=== PATIENT | male | born 1955 | race Caucasian/White ===

== ENCOUNTER → 2024-11-17 13:01 | Outpatient (REF) | payer MEDICARE, SELFPAY | LOC: HWRAD 13:01 | PROVIDERS: ATTENDING PHYSICIAN Nurse Practitioner | DX: M54.42 Lumbago with sciatica, left side (principal) | CPT/HCPCS: 72110 ==

== ENCOUNTER 2024-12-30 01:30 | Inpatient (IN) | payer MEDICARE, SELFPAY ==
[2024-12-29 21:45] VITALS: BP 165/81
[2024-12-29 22:17] LABS: Hemoglobin 11.3 g/dL (13.0-18.0); Mean Corp Hgb Conc. 33.2 g/dL (33.0-37.0); Mean Corpuscular Hgb 27.7 pg (27.0-31.0); Mean Corpuscular Volume 83.3 fL (80.0-94.0); Mean Platelet Volume 11.9 fL (7.4-10.4); Platelet Count 227 10^3/uL (130-400); Red Blood Cell Count 4.08 10^6/uL (4.70-6.10); Red Cell Dist. Width 17.3 % (11.5-14.5); White Blood Cell Count 12.6 10^3/uL (4.8-10.8)
[2024-12-29 22:25] LABS: ALT (SGPT) 18 U/L (0-50); AST (SGOT) 26 U/L (17-59); Albumin 4.4 g/dl (3.5-5.0); Alkaline Phosphatase 249 U/L (38-126); Blood Urea Nitrogen 12 mg/dl (9-20); Calcium 9.4 mg/dl (8.4-10.2); Carbon Dioxide 25 mmol/L (22-30); Chloride 106 mmol/L (98-107); Glucose 156 mg/dl (70-99); Potassium 4.2 mmol/L (3.5-5.1); Sodium 141 mmol/L (135-145); Total Bilirubin 0.8 mg/dl (0.2-1.3); Total Protein 7.1 g/dl (6.3-8.2); eGFR > 60.00
[2024-12-29 22:28] LABS: Absolute Neutrophils -Man Diff 7.8 10^3/uL (1.4-6.5); Band Neutrophils 0 % (0-3); Eosinophils 13 % (0-6); Lymphocytes 10 % (20-51); Monocytes 15 % (2-9); Normal RBC Morphology No; Platelets Checked Yes; Segmented Neutrophils 62 % (42-75)
[2024-12-29 22:29] LABS: Anisocytosis 1+
[2024-12-29 22:30] LABS: Ovalocytes 1+
[2024-12-29 22:31] LABS: Microcytosis 1+; Target Cells Slight; Total Cells Counted 100
--- NOTE | 2024-12-29 23:26 | ED.CVA ---
History of Present Illness
General
Chief Complaint: CVA/TIA Symptoms
Source: patient
Exam Limitations: none
Time Seen by Provider: 12/29/24 23:13
Onset of Stroke Symptoms
Onset of symptoms known: Yes
Date of onset of symptoms: 12/29/24
History of Present Illness
History of Present Illness:
See MDM
Past History
Past History
ED Past Medical History: Cancer (Pancreatic )
ED Past Surgical History: Other (Port)
Social History
Tobacco: Non-smoker
Alcohol: None
Phy Exam
Physical Exam
Physical Exam:
See MDM
Scores
NIH Stroke Score
Level of Consciousness: 0 - Alert
LOC Questions: 0-Answers both correctly
LOC Commands: 0-Performs both correctly
Best Horizontal Gaze: 0-Normal
Visual Barboza: 0=Normal, no visual loss
Facial Palsy: 1=Minor paralysis
Motor - Right Arm: 0=No drift 10 seconds
Motor - Left Arm: 0=No drift 10 seconds
Motor - Right Le-No drift 5 seconds
Motor - Left Le-No drift 5 seconds
Limb Ataxia: 0-Absent
Sensation: 0-Normal
Best Language: 0-No aphasia
Dysarthria: 1-Mild slurring
Extinction and Inattention: 0-No abnormality
NIH Total Score:: 2
Course
Orders/Labs/Results
Orders:
Orders
12/29/24 21:[address] [CT Head W/o Iv Contrast] Urgent
Comment:
Reason For Exam: slurred speech
12/29/24 21:56
Complete Blood Count/With Diff Urgent
Comprehensive Metabolic Panel Urgent
Manual Differential Urgent
12/29/24 23:31
Electrocardiogram (*1) Urgent
Reason for Study: TIA/Stroke
EKG- Treatment ONCE
Abnormal Lab Results
12/29/24
21:56
WBC 12.6 H 10^3/uL
(4.8-10.8)
RBC 4.08 L 10^6/uL
(4.70-6.10)
Hgb 11.3 L g/dL
(13.0-18.0)
Hct 34.0 L %
(39.0-52.0)
RDW 17.3 H %
(11.5-14.5)
MPV 11.9 H fL
(7.4-10.4)
Abs Neuts (Manual) 7.8 H 10^3/uL
(1.4-6.5)
Lymphocytes (Manual) 10 L %
(20-51)
Monocytes (Manual) 15 H %
(2-9)
Eosinophils (Manual) 13 H %
(0-6)
Glucose 156 H mg/dl
(70-99)
Alkaline Phosphatase 249 H U/L
(38-126)
12/29/24 21:56
12/29/24 21:56
Vital Signs
Initial and Last Documented VS:
Initial Vital Signs
Temp Pulse Resp BP Pulse Ox
98.9 F 87 16 165/81 95
12/29/24 21:45 12/29/24 21:45 12/29/24 21:45 12/29/24 21:45 12/29/24 21:45
Last Documented Vital Signs
Temp Pulse Resp BP Pulse Ox
98.9 F 73 16 150/61 95
12/29/24 21:45 12/29/24 23:38 12/29/24 21:45 12/29/24 23:38 12/29/24 21:45
MDM/Problems Addressed
Differential Diagnosis Includes:
HPI and MDM Narrative:
69-year-old male presenting for evaluation of slurred speech and left facial droop. This occurred around 3 PM this afternoon. By time he got to the emergency department, patient was not a TNK candidate. Regardless, he has active pancreatic cancer
receiving experimental treatment. He denies any headache. Denies numbness or tingling. On exam, patient does have mild dysarthria and evidence of very mild left facial droop. The remainder of his neuro exam within normal limits. Patient already
took his Eliquis earlier in the evening. CT head negative. Will admit for further stroke workup
Physical exam
General: Well appearing and non-toxic
HEENT: protecting airway
Neck: appears supple
CV: No evidence of cyanosis. Regular rate and rhythm
Resp: No accessory muscle use
Abd: Non-distended
Extremities: No deformities
Neuro: alert. Mild dysarthria. Very mild left facial droop
Psych: Normal affect
Skin: Intact
Problems Addressed including Acute and Chronic Conditions affecting care:
1. Dysarthria and facial droop
Acuity: acute
Prognosis: stable
Details: Concern for CVA. He is out of TNK window. He already took Eliquis earlier in the evening. Will admit for further stroke workup
Differential Diagnosis (but not limited to): Stroke intracranial hemorrhage
Testing considered: CTA
Drug therapy (if applicable): OTC meds, please see d/c instruction regarding Rx drugs
Amount and/or Complexity of Data Reviewed
Clinical info obtained from: Patient
External data reviewed: N/A
Labs I independently reviewed (but not limited to): Mild leukocytosis
Radiology: The CT scan was personally and independently reviewed. In addition, official CT report reviewed.
Pulse Ox: not hypoxic
EKG independently reviewed: Sinus rhythm, normal axis, no STEMI
Care Analyst: Sinus rhythm
Critical Care: N/A
Risk of Complication:
Social Determinants of health: Good social support
Discussed with other providers: Hospitalist
Escalation of Care includes Admit/Obs: Given the concern for stroke, will admit
Occasional wrong word or 'sound a like' substitutions may have occurred due to the inherent limitations of voice recognition software. Read the chart carefully and recognize, using context, where substitutions have occurred.
*Critical Care Note
Total Time (30-74mins, 75-104mins- exclusive of procedures): Not Applicable
ED Attending Note
-
Portions of this chart may have been created with voice recognition software.� Occasional wrong word or��sound alike� substitutions may have occurred due to the inherent limitations of voice recognition software.
Discharge Plan
Departure
Patient Disposition: Admit
Date of Disposition: 12/29/24
Time of Disposition: 23:36
Admit to: Telemetry
Presentation/result/management discussed w/ accepting MD/DO: Hospitalist
Discharge Problem:
Acute CVA (cerebrovascular accident)
Referrals:
Lora Pineda CRNP [Family Provider, Family Practice]
Interventions
Interventions:
*Risk Screen - Suicide Last Done: 12/29/24 21:49
*General Assessment Last Done: 12/29/24 23:27
*Neglect/Abuse Screening Last Done: 12/29/24 21:49
*ED- Fall Risk Assessment Last Done: 12/29/24 23:39
*ED COVID-19 Vaccine History Last Done: 12/29/24 23:39
ED- Pulmonary Assessment Last Done: 12/29/24 23:27
ED- Neurological Assessment Last Done: 12/29/24 23:27
ED- Cardiac Assessment Last Done: 12/29/24 23:27
ED Swallowing Screen Last Done: 12/29/24 23:27
Discharge Date and Time
Print Language: SERBIAN
[2024-12-29 23:38] VITALS: BP 150/61
[2024-12-30] VITALS (10 sets, daily range): BP systolic 105–153; BP diastolic 59–70; PULSE 71; O2SAT 97; BMI 21.7
--- NOTE | 2024-12-30 01:19 | HPS.HSE ---
Family Physician
-
Family Physician: Lora Pineda
Chief Complaint
-
Slurred speech
History of Present Illness
Patient is a 69y M with PMH significant for pancreatic cancer currently in experimental trial @ [place] who presents to ED complaining of slurred speech and L facial droop. Patient and his noted speech / facial droop around 4 PM today. He
took a short nap and his symptoms persisted upon waking. They presented to the ED for further evaluation. He reports mild headache earlier in the day - none at present. No numbness / tingling. No vision changes. No weakness of the extremities,
ataxia, etc. Patient denies any prior history of CVA.
Medical History
Past Medical History
Past Medical History: Reports Other
Additional Past Medical History:
Pancreatic Cancer / BRCA Positive
Pulmonary Embolism
Allergies / Asthma
GERD
Past Surgical History: Reports Other
Additional Past Surgical History:
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
Hernia repair
Social History
Tobacco: Non-smoker
Alcohol: None
Drug: None
Family History
Family History: Other (Father: BRCA positive)
Allergies / Home Medications
Allergies reflects when Allergies were last updated in [employer].
Home Medications with original date entered in [employer]
Allergy/Medication List:
Allergies
Allergy/AdvReac Type Severity Reaction Status Date / Time
Iodinated Contrast Media Allergy Rash Verified 05/06/23 11:32
Home Medications
apixaban 5 mg tablet (Eliquis) 5 mg PO BID 12/30/24
montelukast 10 mg tablet 10 mg PO HS 12/30/24
pantoprazole 40 mg tablet,delayed release 40 mg PO DAILY 12/30/24
sennosides 8.6 mg-docusate sodium 50 mg tablet (Senna with Docusate Sodium) 2 tab-cap PO HS 12/30/24
MOMA-313 50mg tabs 250mg PO q12h 12/30/24
Review of Systems
-
History Source: Patient
A 12 point ROS was completed and negative except as noted: Yes
Constitutional: Denies Fever or Chills
Respiratory: Denies Cough or Trouble Breathing
Cardiac: Denies Chest Pain or Palpitations
Abdomen/GI: Denies Abdominal Pain, Nausea, Vomiting or Diarrhea
: Denies Dysuria or Frequency
Neurological: Reports Other (slurred speech / facial droop.); Denies Dizzy, Headache, Weakness or Numbness
Psych: Denies Depression or Anxiety
Physical Exam
Vital Signs
Vital Signs
Temp Pulse Resp BP Pulse Ox
98.9 F 72 15 146/63 96
12/29/24 21:45 12/30/24 00:45 12/30/24 00:45 12/30/24 00:00 12/30/24 00:45
Physical Exam
General: Other (69y M in no acute distress.)
HEENT: Moist mucous membranes and PERRLA
Respiratory: Clear; No Wheezes, Rales or Rhonchi
Cardiac: S1/S2 and Regular Rhythm; No Murmur
GI: Soft, Non Tender, Non Distended and Normal Bowel Sounds
Musculoskeletal: No Clubbing, No Cyanosis and No Edema
Neuro: AO x 3 and Other (L facial droop - mild. Mild dysarthria. L weakness appreciated on exam in this ambidextrous gentleman.)
Laboratory Results
-
12/29/24 21:56
12/29/24 21:56
Laboratory Results
Total Bilirubin 0.8 mg/dl (0.2-1.3) 12/29/24 21:56
AST 26 U/L (17-59) 12/29/24 21:56
ALT 18 U/L (0-50) 12/29/24 21:56
Alkaline Phosphatase 249 U/L (38-126) H 12/29/24 21:56
Impression/Plan
-
A/P: Patient is a 69y ambidextrous M with PMH significant for pancreatic cancer on investigational trial who presents to ED complaining of slurred speech and facial droop.
CVA
- Admit for further evaluation and treatment.
- History and exam c/w R MCA CVA with dysarthria, L facial droop and appreciable / mild L sided weakness on exam.
- Patient not a TNK candidate due to anticoagulation with Eliquis and timing of symptoms.
- CT head unremarkable.
- Follow for any new / worsening symptoms.
- Check MRI in AM.
- Neuro evaluation for additional recommendations.
- Add ASA daily. Hold Eliquis acutely - likely resume after 24 hours.
- Check lipids, A1C, etc.
Pancreatic Cancer
- s/p pancreatic tail resection and currently enrolled in study at [place].
- Continue study medication - though there is no way to determine whether or not this is related in any way to his current presentation.
- Followed by Dr. Best at [place].
- personal financial representative is [facility] .
- Would confirm with their office prior to any med changes.
History of Pulmonary Embolism
DVT Prophylaxis
- PE diagnosed 'a few months ago' per patient.
- Hold Eliquis x 24 hours as noted above.
- SCDs for now.
Code Status: Full
--- NOTE | 2024-12-30 04:50 | TRANSFER ---
Pt came to 3w from ED, ambulated from stretcher in hallway to hospital bed. NIH score of 2 on admission. Pt oriented to room, call kim within reach, plan of care on going.
[2024-12-30] MEDS: TYLENOL 650 MG PO ×2 (06:32→20:19)
--- NOTE | 2024-12-30 08:35 | PTOTSP ---
Speech Language Pathology
Pt seen for speech/language evaluations. Mild dysarthria noted characterized by imprecise consonant production and decreased vocal intensity. Pt was 100% intelligible in both known and unknown contexts. Pt tearful during evaluation. Language
evaluated via the Quick Aphasia Battery (QAB), form 1. Pt with an overall score of 9.52, indicative of skills WFL overall. Scored 8.75 on 'sentence comprehension' subtest, indicative of mild deficits. Scored WFL on all other subtests.
Pt also seen for clinical bedside swallow evaluation. P.O. trials of puree, regular solids, and thin liquids provided. Adequate mastication, bolus formation, and A-P transit noted with no oral residue. No overt signs of aspiration. Pt at
increased risk for aspiration given oral motor deficits and suspected acute CVA. Discussed option of instrumental swallowing assessments if any difficulties noted by pt/staff.
Recommend:
(1) Regular solids/thin liquids
(2) General aspiration precautions
(3) Meds as tolerated
(4) PRIMARY EDUCATION PROFESSOR to continue to follow
[2024-12-30] MEDS: PROTONIX 40 MG PO (09:02)
[2024-12-30] MEDS: LOW STRENGTH ASPIRIN 81 MG PO (09:02)
[2024-12-30] MEDS: [UNRECOGNIZED DRUG - OTHER] 5 UNIT PO (10:00)
[2024-12-30 11:00] LABS: Hematocrit 34.4 % (39.0-52.0); Hemoglobin 11.3 g/dL (13.0-18.0); Mean Corp Hgb Conc. 32.8 g/dL (33.0-37.0); Mean Corpuscular Hgb 27.6 pg (27.0-31.0); Mean Corpuscular Volume 83.9 fL (80.0-94.0); Mean Platelet Volume 12.8 fL (7.4-10.4); Platelet Count 218 10^3/uL (130-400); Red Cell Dist. Width 17.2 % (11.5-14.5); White Blood Cell Count 12.7 10^3/uL (4.8-10.8)
[2024-12-30 11:30] LABS: Glycohemoglobin (HgbA1c) 6.5 % (4.0-5.6)
[2024-12-30 11:34] LABS: ALT (SGPT) 17 U/L (0-50); AST (SGOT) 24 U/L (17-59); Albumin 4.3 g/dl (3.5-5.0); Alkaline Phosphatase 235 U/L (38-126); Blood Urea Nitrogen 10 mg/dl (9-20); Calcium 9.5 mg/dl (8.4-10.2); Carbon Dioxide 25 mmol/L (22-30); Chloride 106 mmol/L (98-107); Direct Bilirubin 0.3 mg/dl (0.0-0.4); Estimated Creatinine Clearance 90 ml/min; Glucose 124 mg/dl (70-99); HDL Cholesterol 46 mg/dl; LDL Cholesterol, Calculated 179 mg/dl; Potassium 4.2 mmol/L (3.5-5.1); Sodium 139 mmol/L (135-145); Total Cholesterol 245 mg/dl (50-199); Total Protein 6.9 g/dl (6.3-8.2); Triglyceride 104 mg/dl (10-149); Very Low Density Lipoprotein 20 mg/dl (0-30); eGFR > 60.00
--- NOTE | 2024-12-30 13:29 | W.PN.HOSP.TC ---
Today's Communication/Plan
-
Assessment / Plan
Assessment / Plan
NAD
Scleral Anicteric
MMM
No JVD
CTABL
RRR, S1/S2
Soft, NT, ND, BS+
Warm, Dry
AAOx3, facial droop left-sided noticeable, still with slurred speech, otherwise equal strength in bilateral upper and lower extremities
Calm
Acute CVA
MRI demonstrated acute infarcts throughout the bilateral cerebral hemispheres, left to take 3 into the cerebellum, was suspicious for embolic phenomena
-It is interesting that he would have had a cardioembolic CVA while on Eliquis
Carotid ultrasound
2D echocardiogram
Telemetry telemetry monitoring
Cardiology consult
Neurology consult
History of PE
Hold Eliquis for today plan to resume tomorrow to prevent hemorrhagic conversion
Pancreatic adenocarcinoma
Follows at [facility]
On experimental receptor therapy
- I personally spoke with the coordinator at [facility] for the experimental drug. Recommend to hold until next week once seen in the office
- The coordinator will reach out to the PI to see if he can be started on a statin
- Additionally if this is a cardioembolic phenomenon on Eliquis this is considered failure of therapy and see need to be started on Coumadin if so what is the CYP metabolic interactions with Coumadin and this experimental agent
Anticipated Discharge: 24 - 48 hours
Subjective/Interval History
-
Date of Service: December 30, 2024
Seen and examined. No new complaints. No acute overnight events.
Objective Data
-
Labs:
Laboratory Results
12/30/24
10:08
WBC 12.7 H
Hgb 11.3 L
Hct 34.4 L
Plt Count 218
Sodium 139
Potassium 4.2
Chloride 106
Carbon Dioxide 25
BUN 10
Creatinine 0.7
Glucose 124 H
Calcium 9.5
Total Bilirubin 1.0
AST 24
ALT 17
Alkaline Phosphatase 235 H
Vital Signs:
Vital Signs
Temp Pulse Resp BP Pulse Ox
97.8 F 60 16 135/59 98
12/30/24 11:17 12/30/24 11:17 12/30/24 11:17 12/30/24 11:17 12/30/24 11:17
I&O
12/29/24 12/30/24 12/31/24
06:59 06:59 06:59
Intake Total 480 / 480
Balance 480 / 480
--- NOTE | 2024-12-30 16:32 | CON.CAR ---
Addendum entered and electronically signed by Joseluis Nelson MD 12/30/24 17:18:
I saw and examined the patient.
The Bleach Range Operator's note was reviewed and I agree with the note.
Comment: Briefly, 69-year-old man past medical history of pancreatic cancer with partial pancreas ectomy and splenectomy on chemotherapy who presented with word finding difficulties and left facial droop concerning for acute CVA. MRI of the brain
showed scattered acute bihemispheric infarcts concerning for embolic stroke. Cardiology is consulted to evaluate for cardioembolic source.
Would monitor on telemetry here for atrial fibrillation/atrial flutter as a potential cause
We can arrange for long-term outpatient monitor on discharge
Patient was anticoagulated with Eliquis prior to admission; if atrial fibrillation was identified would need to consider alternative OAC
Carotid ultrasound pending
For completeness we will arrange for WILLIAM, tentatively tomorrow a.m.
Rest per Lisette Garcia
Original Note:
Consultation
Consultation Request
Date/Time Consultation Performed: 12/30/24
Requesting Provider: Dr. Lesli Ortiz
Performing Provider: Lisette Garcia PA-C for Dr. Nelson
Reason for Consultation: B/L CVA
Medical History
-
Chief Complaint: slurred speech, facial droop
History of Present Illness:
Patient is a 69-year-old male with past medical history of pancreatic cancer status post splenectomy and partial pancreatectomy of tail status post chemotherapy and currently on experimental treatment at [facility] with Dr. Jessica Patel. He has been
on this medication since 09/2024. He also has history of PE on Eliquis therapy. He presented to the [facility] for evaluation of slurred speech and facial droop which he noted yesterday afternoon. He states he took a nap, however the symptoms persisted
even upon waking and came for evaluation. Brain MRI today showed evidence of multiple bihemispheric strokes resulting in cardiac consultation. He denies history of atrial arrhythmia or cardiac issues to his knowledge. He denies feelings of
palpitations or lightheadedness/dizziness. Cardiology consulted for evaluation of cardioembolic source of stroke. Patient reports he has been religiously compliant with his Eliquis.
PMH:
Pancreatic cancer status post splenectomy and partial pancreatectomy of tail, chemotherapy, and currently on experimental treatment at [facility]
BRCA positive
PE, on chronic eliquis
GERD
Past Medical History
Past Medical History: Other (in HPI)
Social History
Tobacco: Non-Smoker
Alcohol: None
Personal:
Living: With Family
Family History
Family History: Other (Father BRCA positive)
Allergies / Home Medications
Allergy/AdvReac Type Severity Reaction Status Date / Time
Iodinated Contrast Media Allergy Rash Verified 05/06/23 11:32
�Medication �Instructions �Recorded �Confirmed �Type
apixaban 5 mg tablet (Eliquis) 5 mg PO BID 12/30/24 12/30/24 History
montelukast 10 mg tablet 10 mg PO HS 12/30/24 12/30/24 History
pantoprazole 40 mg tablet,delayed 40 mg PO DAILY 12/30/24 12/30/24 History
release
sennosides 8.6 mg-docusate sodium 2 tab-cap PO HS 12/30/24 12/30/24 History
50 mg tablet (Senna with Docusate
Sodium)
Review of Systems
-
History Source: Patient and Family
All other systems: Negative unless noted
Physical Exam
Vital Signs
Temp Pulse Resp BP Pulse Ox
97.8 F 60 16 135/59 98
12/30/24 11:17 12/30/24 11:17 12/30/24 11:17 12/30/24 11:17 12/30/24 11:17
Lab Results
12/30/24 10:08
12/30/24 10:08
Physical Exam
General: No Apparent Distress and Comfortable
HEENT: Normocephalic, Anicteric and Moist Mucous Membranes
Respiratory: Clear and Non Labored Respirations
Cardiac: S1/S2 and Regular Rhythm
GI: Soft, Non Tender and Non Distended
Musculoskeletal: No Clubbing, No Cyanosis and No Edema
Skin: Warm and Dry
Neuro: AO x 3 and Other (mild speech slurring, some forgetfulness)
Impression / Plan
-
Primary Credit Card Associate: none prior to admission
Assessment:
Presentation with slurred speech, facial droop
Numerous bihemispheric acute infarcts
Sinus arrhythmia
Pancreatic cancer status post splenectomy and partial pancreatectomy of tail, chemotherapy, and currently on experimental treatment at [place]
BRCA positive
PE, on chronic eliquis
GERD
HLD
ECHO 12/30/24: pending
Plan:
- Patient presented with slurred speech and facial droop. Noted by brain MRI to have numerous bihemispheric acute infarcts with concern for cardioembolic etiology. Patient has no history of arrhythmia or cardiac issues
- Denies palpitations or lightheadedness/dizziness
- In sinus rhythm by EKG as well as by review of telemetry since admission
- Transthoracic echo pending
- cardiology consulted to eval for WILLIAM (pending results of TTE)
- procedure discussed with patient and at bedside. they are agreeable to proceed. NPO after midnight for WILLIAM 12/31
- will also plan for 4 week cardiac monitoring upon DC to eval for underlying arrhythmia
- has been in contact with Dr. Marcelo Patel, [place], and plan is to stop trial drug. they are scheduled to see her in office next week to discuss treatment options
- unclear if this should be called eliquis failure, will discuss with neurology. he reports he has been taking eliquis without missed doses. may need to transition to alternative OAC, currently on asa only
- LDL elevated at 197. would add statin. LFTs WNL.
- d/w neurology via TT
Data Reviewed
-
EKG: Tracing Personally Visualized and interpreted
MRI: Report Reviewed by me
Medical Tests (Nuc Med, Echo etc): Report Reviewed by me
Labs: Labs Reviewed by me
Old Records: Reviewed
[2024-12-30 17:02] LABS: Glucose - Point of Care 136 mg/dl (70-99)
[2024-12-30] MEDS: LIPITOR 40 MG PO (18:11)
--- NOTE | 2024-12-30 19:55 | CON.NEURO ---
Neuro Assessment/Plan
Assessment
Brain MRI imgs rev'd with patient, numerous tiny/small emboli appearing of different ages
Carotid u/s velocities reviewed, PSV consistent with moderate stenosis prox R ICA which i do not believe is symptomatic
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
patient hypercoaguable from panc ca with mets, h/o DVT/PE, I believe he should be on lifelong NOAC, that presently risk of more emboli outweigh risk of bleed given very little cortical involvement in the right frontal region which is far from
eloquent areas. I have restarted Eliquis tonight
In Afib studies, All NOAC were shown to decrease stroke risk ~half and I think they're all pretty equal; In the setting of failed Eliquis, there is no evidence/consensus whether to switch brands to something theoretically equal; my habit is not to
switch brands because the hassle, but perhaps the mind/body effect of doing something may benefit. Agree WILLIAM for completeness but I don't think WILLIAM or afib will change this decision.
Consultation
Order
Date of Consultation: 12/30/24
Requesting Provider: Larry Stevenson
Reason for Consult: stroke
Subjective/Objective
Subjective Data
Date of Service: December 30, 2024
from h&p:
Patient is a 69y M with PMH significant for pancreatic cancer currently in experimental trial @ [place] who presents to ED complaining of slurred speech and L facial droop. Patient and his noted speech / facial droop around 4 PM today. He
took a short nap and his symptoms persisted upon waking. They presented to the ED for further evaluation. He reports mild headache earlier in the day - none at present. No numbness / tingling. No vision changes. No weakness of the extremities,
ataxia, etc. Patient denies any prior history of CVA.
patient reports panc ca spread to liver. h/o DVT/PE on Eliquis x6 months.
Objective Data
Vital Signs
Temp Pulse Resp BP Pulse Ox
36.6 C 60 16 135/59 98
12/30/24 11:17 12/30/24 11:17 12/30/24 11:17 12/30/24 11:17 12/30/24 11:17
Lab Results
12/30/24 10:08
12/30/24 10:08
Sodium 139 mmol/L (135-145) 12/30/24 10:08
Potassium 4.2 mmol/L (3.5-5.1) 12/30/24 10:08
BUN 10 mg/dl (9-20) 12/30/24 10:08
Glucose 124 mg/dl (70-99) H 12/30/24 10:08
Calcium 9.5 mg/dl (8.4-10.2) 12/30/24 10:08
LDL Cholesterol, Calc 179 mg/dl 12/30/24 10:08
Patient Allergies
Iodinated Contrast Media Allergy (Verified 05/06/23 11:32)
Rash
CVA Assessment
Onset of Stroke Symptoms
Onset of symptoms known: Yes
Date of onset of symptoms: 12/29/24
Time of onset of symptoms: 16:00
NIH Stroke Score
Level of Consciousness: 0 - Alert
LOC Questions: 0-Answers both correctly
LOC Commands: 0-Performs both correctly
Best Horizontal Gaze: 0-Normal
Visual Barboza: 0=Normal, no visual loss
Facial Palsy: 1=Minor paralysis
Motor - Right Arm: 0=No drift 10 seconds
Motor - Left Arm: 0=No drift 10 seconds
Motor - Right Le-No drift 5 seconds
Motor - Left Le-No drift 5 seconds
Limb Ataxia: 0-Absent
Sensation: 0-Normal
Best Language: 0-No aphasia
Dysarthria: 1-Mild slurring
Extinction and Inattention: 0-No abnormality
NIH Total Score:: 2
Tenecteplase Contraindications
Reasons for NON-Tx with Thrombolytics ABSOLUTE Exclusions: Patient taking oral anticoagulant and last dose within 48 hours
Physical Exam
-
AAOx3, speech clear, language intact
VFF, EOMI, L NL flattening
trace LUE/LE weakness, pronator drift
sensation intact touch/pin
FNF intact
Medications
-
Active Medications
Generic Name Dose Route Start Last Admin
Trade Name Freq PRN Reason Stop Dose Admin
Acetaminophen 650 mg 12/30/24 03:53 12/30/24 06:32
Acetaminophen 325 Mg Tablet PO 01/27/25 03:52 650 mg
Q4HPRN PRN Administration
Mild Pain / Temp > 101
Aspirin 81 mg 12/30/24 08:00 12/30/24 09:02
Aspirin 81 Mg Chewable Tablet PO 01/27/25 07:59 81 mg
DAILY ANABELLA Administration
Atorvastatin Calcium 40 mg 12/30/24 18:00 12/30/24 18:11
Atorvastatin (Lipitor) 40 Mg Tablet PO 01/27/25 17:59 40 mg
QPM ANABELLA Administration
Heparin Sodium (Porcine) 500 unit 12/30/24 10:15 12/30/24 12:40
Heparin Flush Pf (100 Unit/Ml) 5 Ml Syringe IV 01/27/25 10:14 500 unit
PER PROTOCOL ANABELLA Administration
Insulin Aspart 0 units 12/30/24 16:30 12/30/24 17:10
Insulin Aspart Low Resistance 300 Units/3 Ml Pen.Injctr SC 01/27/25 16:29 Not Given
AC ANABELLA
Protocol
Montelukast Sodium 10 mg 12/30/24 22:00
Montelukast Sodium 10 Mg Tablet PO 01/27/25 21:59
HS ANABELLA
Pantoprazole Sodium 40 mg 12/30/24 08:00 12/30/24 09:02
Pantoprazole 40 Mg Delayed Release Tablet PO 01/27/25 07:59 40 mg
DAILY ANABELLA Administration
Pharmacy Profile Note 0 unit 12/30/24 09:30 12/30/24 10:00
Moma-313 50 Mg Tab- 5 Tabs (250mg) Twice A Day PO 01/27/25 09:29 5 unit
BID ANABELLA Administration
Protocol
Senna/Docusate Sodium 2 tablet 12/30/24 22:00
Docusate W/Senna (Cynthia-Colace) Tablet PO 01/27/25 21:59
HS ANABELLA
Sodium Chloride 0 flush 12/29/24 23:00
Sodium Chloride 0.9% (Flush) Syringe IV 01/26/25 22:59
PER PROTOCOL ANABELLA
Home Medications
�Medication �Instructions �Recorded
apixaban 5 mg tablet (Eliquis) 5 mg PO BID 12/30/24
montelukast 10 mg tablet 10 mg PO HS 12/30/24
pantoprazole 40 mg tablet,delayed 40 mg PO DAILY 12/30/24
release
sennosides 8.6 mg-docusate sodium 2 tab-cap PO HS 12/30/24
50 mg tablet (Senna with Docusate
Sodium)
[2024-12-30] MEDS: [UNRECOGNIZED DRUG - OTHER] PO ×2 (20:21→20:27)
[2024-12-30] MEDS: ELIQUIS 5 MG PO (21:11)
[2024-12-30] MEDS: SENOKOT-S 2 TABLET PO (21:11)
[2024-12-30] MEDS: SINGULAIR 10 MG PO (21:11)
--- NOTE | 2024-12-30 21:25 | PTCARENOTE ---
Dr. Smith on unit, Eliquis verified to be administered tonight.
[2024-12-30 23:56] LABS: Glucose - Point of Care 120 mg/dl (70-99)
[2024-12-31] MEDS: TYLENOL 650 MG PO (03:28)
[2024-12-31 03:34] VITALS: BP 148/69
[2024-12-31 04:54] VITALS: BMI 21.5
[2024-12-31 06:38] LABS: Glucose - Point of Care 113 mg/dl (70-99)
[2024-12-31 06:38] LABS: Glucose - Point of Care 121 mg/dl (70-99)
[2024-12-31] MEDS: ELIQUIS 5 MG PO (08:04)
[2024-12-31] MEDS: LOW STRENGTH ASPIRIN 81 MG PO (08:04)
[2024-12-31] MEDS: PROTONIX 40 MG PO (08:04)
[2024-12-31] MEDS: [UNRECOGNIZED DRUG - OTHER] PO (08:05)
[2024-12-31 08:08] VITALS: BP 137/63
[2024-12-31 11:47] VITALS: BP 135/61
[2024-12-31 12:08] LABS: Glucose - Point of Care 96 mg/dl (70-99)
--- NOTE | 2024-12-31 12:39 | W.DCSUMMARY ---
Discharge Summary
Discharge Data
Date of Admission: 12/30/24
Date of Discharge: 12/31/24
-
Pending Results: Yes
Additional Pending Results:
2d echo
Hospital Course
69y M with PMH significant for pancreatic cancer currently in experimental trial @ [facility]
Presented with slurred speech left-sided facial droop neurologist. Unfortunately he was not a candidate for TNK. CT brain was unremarkable therefore MRI brain was obtained that demonstrated numerous scattered acute infarcts throughout the
bilateral cerebral hemispheres and lesser degree in the cerebellum. Concerning for mass suspicious for embolic phenomenon. Started on aspirin and statin. Will continue on Eliquis as cardiology was not able to find a source of stroke on WILLIAM. And
has recommended to discuss transitioning to a different anticoagulant with oncologist/deck mechanic at [facility]. Evaluated by PT recommend outpatient therapy evaluated by speech therapy recommended regular diet thin liquids, aspiration precautions Meds
as tolerated.
Additionally should be noted that this is a new diagnosis of diabetes as hemoglobin A1c is 6.5. Started on metformin 500 mg twice a day. Follow carb controlled diet
Head CT
IMPRESSION:
No acute intracranial abnormality.
Brain Mri
IMPRESSION:
Numerous scattered acute infarcts throughout the bilateral cerebral hemispheres, and to a lesser degree in the cerebellum. The distribution is most suspicious for embolic phenomenon.
Carotid ultrasoud
IMPRESSION:
1. By peak systolic velocity criteria, there is 50-69% stenosis of the right internal carotid artery. However ICA to CCA ratio is 1.48, suggesting that peak systolic velocity criteria alone may slightly overestimate the degree of stenosis.
2. By velocity criteria, any left internal carotid artery stenosis present is in the range of 0-49%.
WILLIAM
CONCLUSIONS
Normal left ventricular size, wall thickness and systolic function. No regional
wall motion abnormalities are seen. The ejection fraction is estimated at 55-
60%.
Normal right ventricular size and function.
No thrombus detected in the left atrial appendage.
Mild to moderate eccentric aortic regurgitation.
The interatrial septum is intact with no evidence of shunt by color flow
Doppler or agitated saline contrast injection.
No cardioembolic source of stroke identified
He was seen and examined the day of discharge which was 12/31/2024.
No new complaints. No acute overnight events.
NAD
Scleral Anicteric
MMM
No JVD
CTABL
RRR, S1/S2
Soft, NT, ND, BS+
Warm, Dry
AAOx3, facial droop left-sided, softly spoken improved slurring, otherwise equal strength in bilateral upper and lower extremities
Calm
More than 30 minutes spent in discharge including
Final examination of the patient
Summarizing hospital stay
Instructions for continuing care to all relevant caregivers
Preparation of discharge records, prescriptions, and referral forms
Total time spent (in minutes): 33min
Discharge Plan
-
Patient Disposition: Home (Routine Discharge)
Discharge Diagnosis/Procedures: acute cva
Condition: Fair
Diet: As tolerated, 2 Gram Sodium, Diabetic, Carb Controlled and No added salt
Activity: As tolerated
Activity Restrictions/Additional Instructions:
Presented with slurred speech left-sided facial droop neurologist. Unfortunately he was not a candidate for TNK. CT brain was unremarkable therefore MRI brain was obtained that demonstrated numerous scattered acute infarcts throughout the
bilateral cerebral hemispheres and lesser degree in the cerebellum. Concerning for mass suspicious for embolic phenomenon. Started on aspirin and statin. Will continue on Eliquis as cardiology was not able to find a source of stroke on WILLIAM. And
has recommended to discuss transitioning to a different anticoagulant with oncologist/deck mechanic at [facility]. Evaluated by PT recommend outpatient therapy evaluated by speech therapy recommended regular diet thin liquids, aspiration precautions Meds
as tolerated.
Additionally should be noted that this is a new diagnosis of diabetes as hemoglobin A1c is 6.5. Started on metformin 500 mg twice a day. Follow carb controlled diet
Head CT
IMPRESSION:
No acute intracranial abnormality.
Brain Mri
IMPRESSION:
Numerous scattered acute infarcts throughout the bilateral cerebral hemispheres, and to a lesser degree in the cerebellum. The distribution is most suspicious for embolic phenomenon.
Carotid ultrasoud
IMPRESSION:
1. By peak systolic velocity criteria, there is 50-69% stenosis of the right internal carotid artery. However ICA to CCA ratio is 1.48, suggesting that peak systolic velocity criteria alone may slightly overestimate the degree of stenosis.
2. By velocity criteria, any left internal carotid artery stenosis present is in the range of 0-49%.
WILLIAM
CONCLUSIONS
Normal left ventricular size, wall thickness and systolic function. No regional
wall motion abnormalities are seen. The ejection fraction is estimated at 55-
60%.
Normal right ventricular size and function.
No thrombus detected in the left atrial appendage.
Mild to moderate eccentric aortic regurgitation.
The interatrial septum is intact with no evidence of shunt by color flow
Doppler or agitated saline contrast injection.
No cardioembolic source of stroke identified
Referrals:
Lora Pineda CRNP [Family Provider, Family Practice]
Matilda Perez CRNP [Specified Professional Personl, Cardiology] - 02/12/25 2:40 pm
Referral Note: You have a cardiology follow up appointment at the [place] office, [address]. Please call with questions.
Additional Discharge Medication Instructions: 4 week extrusion technician, as directed
Prescriptions:
New
atorvastatin 40 mg Tablet
40 mg PO QPM Qty: 30 0RF
aspirin 81 mg Tablet,Chewable
81 mg PO DAILY Qty: 30 0RF
metformin 500 mg tablet
500 mg PO BID Qty: 60 0RF
(DME) blood-glucose meter [Accu-Chek Guide Glucose Meter] Misc
Qty: 1 0RF
Rx Instructions:
As Directed
(DME) Accu-Chek Guide test strips Strip
Qty: 200 0RF
Rx Instructions:
As Directed
(DME) lancets [Accu-Chek Softclix Lancets] Misc
Qty: 200 0RF
Rx Instructions:
As Directed
Continued
sennosides-docusate sodium [Senna with Docusate Sodium] 8.6-50 mg Tablet
2 tab-cap PO HS
pantoprazole 40 mg Tablet,Delayed Release (Dr/Ec)
40 mg PO DAILY
montelukast 10 mg Tablet
10 mg PO HS
Eliquis 5 mg Tablet
5 mg PO BID
Discharge Orders:
Discharge Patient (As Directed); Ordered 12/31/24
Ordered By: Gabriel Ortiz
Discharge Date and Time
Print Language: ROMANIAN
--- NOTE | 2024-12-31 13:02 | W.PN.CARDCBS ---
Today's Communication / Plan
-
No cardioembolic source of stroke identified by WILLIAM
Will arrange for outpatient panel instrument repairer
Stable for discharge from my perspective
Impression / Plan
-
Primary It Security Administrator: none prior to admission
Assessment:
Presentation with slurred speech, facial droop
Numerous bihemispheric acute infarcts
Sinus arrhythmia
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
BRCA positive
PE, on chronic eliquis
GERD
HLD
Plan:
- Patient presented with slurred speech and facial droop. Noted by brain MRI to have numerous bihemispheric acute infarcts with concern for cardioembolic etiology. Patient has no history of arrhythmia or cardiac issues
- In sinus rhythm by EKG as well as by review of telemetry since admission
- No cardioembolic source of stroke on WILLIAM this AM
- Plan for ferry terminal agent cardiac monitoring upon DC to eval for AFib/flutter
- Unclear if this should be called eliquis failure, as he reports taking eliquis without missed doses, would defer to neurology and his primary oncologist/rn admit at [facility]
- LDL elevated at 197. Atorvastatin added for goal LDL <70.
Stable for discharge from my perspective. Will arrange outpatient follow-up.
Progress Note - It Security Administrator
Subjective
Date of Service: December 31, 2024
No acute overnight events. Patient still reporting word finding difficulties this morning. Maintaining sinus rhythm on telemetry.
Objective
Labs:
12/30/24 10:08
12/30/24 10:08
Labs
Hgb 11.3 g/dL (13.0-18.0) L 12/30/24 10:08
Hct 34.4 % (39.0-52.0) L 12/30/24 10:08
Plt Count 218 10^3/uL (130-400) 12/30/24 10:08
Sodium 139 mmol/L (135-145) 12/30/24 10:08
Potassium 4.2 mmol/L (3.5-5.1) 12/30/24 10:08
BUN 10 mg/dl (9-20) 12/30/24 10:08
Creatinine 0.7 mg/dL (0.7-1.3) 12/30/24 10:08
Glucose 124 mg/dl (70-99) H 12/30/24 10:08
Vital Signs and I&O:
Vital Signs
Temp Pulse Resp BP Pulse Ox
98.0 F 63 16 135/61 96
12/31/24 11:47 12/31/24 11:47 12/31/24 11:47 12/31/24 11:47 12/31/24 11:47
Vital Signs
Temp Pulse Resp BP Pulse Ox
98.0 F 63 16 135/61 96
12/31/24 11:47 12/31/24 11:47 12/31/24 11:47 12/31/24 11:47 12/31/24 11:47
Intake & Output
12/29/24 12/30/24 12/31/24 01/01/25
06:59 06:59 06:59 06:59
Intake Total 900 / 900
Balance 900 / 900
Physical Exam
Physical Exam
Gen: NAD, AAOx3
HEENT: NC/AT, sclera anicteric
Neck: No JVD
CV: RRR, NL s1/s2
Lungs: CTAB
Abd: S/ND
Ext: No LE edema
Skin: Warm, dry
Neuro: Slurred speech
--- NOTE | 2024-12-31 13:36 | CM ---
Alert awake4 oriented patient who lives with Wendi in a 2 story home with 1 step to enter and 13 steps to bed bathroom.He is indecent in all ADLs and driving.Offered VN he requested [facility] liaison .[place] son will drive him home.
No DME
Hx [facility] VN and no SNF hx
Pharmacy [facility]
PCP DR Pineda
PLAN Home with [facility]
[2024-12-31 13:49] VITALS: BP 148/61; PULSE 64; O2SAT 95
--- NOTE | 2024-12-31 14:11 | VNURNOTE ---
Home Health Liaison attempted to meet with patient at bedside. He was out of the room working with therapy. Call placed to patient's spouse to discuss [facility] nurse/therapy, visits, schedule and homebound status. Spouse Wendi is agreeable and
understands that visits at home will be 2-3 x per week to assess and teach medical management. She is aware that [facility] will contact them for start of care in 1-2 days after discharge from . Spouse had to end call abruptly as patient was being
DC'ed.
[facility] referral completed in [facility].
--- NOTE | 2024-12-31 15:00 | PTCARENOTE ---
DIABETES EDUCATION CONSULT
I met with Rodolfo to review diabetes management. He is newly diagnosed with diabetes, his HbA1c is 6.5%.
States he has pancreatic cancer, spread to liver.
I educated on physiology of T2D, organ damage, managing with medications, monitoring BG, nutrition, activity, sleep and managing stress. I reinforced signs of hyperglycemia, hypoglycemia and hypoglycemia protocol; BS parameters and recommended HbA1c
goals, glucometer and CGM instructions, glucose tracker, medic alert bracelet and outpatient DSME program. Written material provided.
I educated and reviewed using Contour Next glucometer, member acknowledged understanding with a self demonstration of checking BS. Provided her with a Contour Next sample kit. I recommended testing once a day alternating testing times each day:
fasting, 2 hours after a different meal each day and to review with PCP. He is prescribed Metformin, explained how this works and side effects.
Encouraged patient to follow up with his PCP for post d/c appointment and to monitor medication and blood glucose levels. Provided list of endocrinologists if desired, to contact insurance company to verify in network status. Requested
prescription sent to pharmacy for test strips and lancets for back up SMBG. Patient verbalized understanding.
[2024-12-31 15:36] VITALS: BP 148/62
--- NOTE | 2024-12-31 15:56 | W.PN.UPDATE ---
Update Note
Progress Note Update
called and discussed with patient's via telephone. provided results of WILLIAM and TTE - no clear cardiac source for CVA, EF preserved. 4 week monitor has been placed. OP cardiac follow up appt reviewed. ok for DC. she was appreciative of call.
== END 2024-12-31 16:20 | disposition home or self-care (01) | DRG 65 ==
LOC: 3 WEST ACU 01:30
PROVIDERS: ADMITTING PHYSICIAN Hospitalist; ATTENDING PHYSICIAN Hospitalist; CONSULT PHYSICIAN Internal Medicine Cardiovascular Disease; CONSULT PHYSICIAN Psychiatry & Neurology Clinical Neurophysiology; EMERGENCY PHYSICIAN Student in an Organized Health Care Education/Training Program; FAMILY PHYSICIAN Nurse Practitioner
PROC: B24BZZ4 Ultrasonography of Heart with Aorta, Transesophageal (ICD-10-PCS; 2024-12-31)
DX: I63.443 Cerebral infarction due to embolism of bilateral cerebellar arteries (principal); C25.9 Malignant neoplasm of pancreas, unspecified; I48.92 Unspecified atrial flutter; I69.352 Hemiplegia and hemiparesis following cerebral infarction affecting left dominant side; I48.91 Unspecified atrial fibrillation; I63.529 Cerebral infarction due to unspecified occlusion or stenosis of unspecified anterior cerebral artery; I35.1 Nonrheumatic aortic (valve) insufficiency; I69.322 Dysarthria following cerebral infarction; I69.392 Facial weakness following cerebral infarction; Z15.01 Genetic susceptibility to malignant neoplasm of breast; Z79.01 Long term (current) use of anticoagulants; Z86.711 Personal history of pulmonary embolism; Z86.718 Personal history of other venous thrombosis and embolism; Z90.411 Acquired partial absence of pancreas; Z90.81 Acquired absence of spleen; Z92.21 Personal history of antineoplastic chemotherapy
CPT/HCPCS: 70450; 70553; 80053; 80061; 82248; 82962; 83036; 85025; 85027; 92523; 92610; 93005; 93306; 93312; 93320; 93325; 93880; 97116; 97129; 97163; 97167; 97535; 99285; A9575